=== PATIENT | male | born 1960 | race Caucasian/White ===

== ENCOUNTER 2019-01-28 13:50 | Emergency (ER) | payer MEDICARE, MEDICAID ==
[~2019-01-28] VITALS: Ht 142.2 cm; Wt 75.7 kg
[~2019-01-28 13:50] MED LIST: ATOR10TA PO; BIMA2.5D EACHEYE; KEP500T PO; LEVO50TA PO; MULT-1085 PO; TIMO10DR29 EACHEYE; VALP250C44 PO
[2019-01-28 15:24] LABS: BASOPHILS # (AUTO) 0.1 X10'3 (0-0.2); BASOPHILS % (AUTO) 0.7 % (0-1); EOSINOPHILS % (AUTO) 0.2 % (0-6); HEMATOCRIT 40.4 % (42.0-52.0); HEMOGLOBIN 13.9 g/dl (14.0-17.9); LYMPHOCYTES # (AUTO) 1.9 X10'3 (1.1-4.8); LYMPHOCYTES % (AUTO) 20.6 % (21-51); MEAN CORPUSCULAR HEMOGLOBIN 31.4 PG (27.0-31.0); MEAN CORPUSCULAR HGB CONC 34.3 g/dL (33.0-36.5); MEAN CORPUSCULAR VOLUME 91.4 FL (78-98); MEAN PLATELET VOLUME 7.7 FL (7.4-10.4); MONOCYTES # (AUTO) 1.4 X10'3 (0-0.9); MONOCYTES % (AUTO) 15.7 % (2-12); NEUTROPHILS # (AUTO) 5.7 X10'3 (1.8-7.7); NEUTROPHILS % (AUTO) 62.8 % (42-75); PLATELET COUNT 138 X10'3 (140-440); RED BLOOD COUNT 4.42 X10'6 (4.70-6.10); RED CELL DISTRIBUTION WIDTH 14.1 % (11.5-14.5); WHITE BLOOD COUNT 9.1 X10'3 (4.5-11.0)
[2019-01-28 15:35] LABS: ALANINE AMINOTRANSFERASE 16 U/L (12-78); ALBUMIN 3.4 G/DL (3.4-5.0); ALBUMIN/GLOBULIN RATIO 0.9 (1.1-1.5); ALKALINE PHOSPHATASE 49 IU/L (46-116); ANION GAP 8 (8-16); ASPARTATE AMINO TRANSFERASE 17 U/L (10-37); BILIRUBIN,TOTAL 1.8 MG/DL (0.1-1.0); BLOOD UREA NITROGEN 17 MG/DL (7-18); BUN/CREATININE RATIO 27.9 (5.4-32.0); CALCIUM 8.9 MG/DL (8.5-10.1); CHLORIDE 96 MMOL/L (99-107); CREATININE 0.61 MG/DL (0.60-1.10); GLUCOSE 99 MG/DL (70-104); POTASSIUM 3.7 MMOL/L (3.5-5.1); SODIUM 131 MMOL/L (135-145); TOTAL CARBON DIOXIDE 27.1 MMOL/L (24-32); TOTAL PROTEIN 7.1 G/DL (6.4-8.2); eGFR > 90 ML/MIN
[2019-01-28 15:44] LABS: MAGNESIUM 1.6 MG/DL (1.5-2.4)
[2019-01-28 17:09] LABS: TOTAL CELLS COUNTED 100
[2019-01-28 17:13] LABS: PLATELET ESTIMATE DECREASED
[2019-01-28 17:14] LABS: ANISOCYTOSIS FEW
[2019-01-28 17:26] LABS: SMUDGE CELLS FEW
--- NOTE | 2019-01-28 18:04 | NUR ---
PT HAS BEEN ACCEPTED TO [facility], AWAITING A BED ASSIGNMENT
[2019-01-28] MEDS ORDERED: ondansetron 4mg rapidly disintigrating tab PO ONE (22:50)
[2019-01-28] MEDS ORDERED: levetiracetam 250mg tablet PO ONE ×2 (23:00)
--- NOTE | 2019-01-28 23:30 | NUR ---
pt transferred from [facility] to hospital bed for comfort
--- NOTE | 2019-01-29 06:34 | NUR ---
CALLED [facility], NO BED ASSIGNMENT ETA YET.
--- NOTE | 2019-01-29 06:50 | NUR ---
pt asked if any family was here for him. I checked in lobby and no one is here for him. pt is aware.
--- NOTE | 2019-01-29 07:32 | NUR ---
PT SLEEPING IN NO DISTRESS.
--- NOTE | 2019-01-29 08:52 | NUR ---
PT IS SLEEPING. TOOK HIM OFF OF BIPAP FOR A LITTLE BIT, PAGED RT TO INFORM THEM. GAVE THE PT SOME WATER. PT STATES HE IS ALLERGIC TO EGGS AND HE NORMALLY JUST HAS WATER FOR BREAKFAST.
--- NOTE | 2019-01-29 09:14 | NUR ---
PT STATES HE HASN'T SEEN A DOCTOR FOR HIS DIARRHEA ISSUE BUT IT'S BEEN GOING ON FOR A LONG TIME. I PUT THE PT ON C-DIFF PRECAUTIONS. GAVE THE PT A FEW MORE SIPS OF WATER.
--- NOTE | 2019-01-29 09:40 | NUR ---
ATTEMPTED IV NOT ABLE TO OBTAIN
[2019-01-29] MEDS ORDERED: acetaminophen 325mg tablet PO ONE (11:30)
--- NOTE | 2019-01-29 11:30 | NUR ---
ATTEMPTED TO START IV, NO SUCCESS, PICC NURSE CONTACTED
[2019-01-29] MEDS: levetiracetam 250mg tablet PO SCH ×2 (11:56→19:36)
[2019-01-29] MEDS: valproic acid 250mg capsule PO SCH ×2 (13:23→22:38)
--- NOTE | 2019-01-29 14:46 | NUR ---
PLACED 20G PIV IN LEFT FOREARM X2 ATTEMPTS USING ULTRASOUND GUIDANCE. PATIENT TOLERATED ALL ASPECTS OF PROCEDURE WELL. SITE COVERED WITH TEGADERM AND TAPE, CAPS ADDED TO ENDS OF Y-SITE, BED IN LOW/LOCKED POSITION, PATIENT POSITIONED TO COMFORT, SIDE RAIL UP. RN NOTIFIED OF IV PLACEMENT.
[2019-01-29] MEDS ORDERED: morphine 4 MG/ML inj SYRINge IV ONE (15:20)
--- NOTE | 2019-01-29 15:26 | NUR ---
[facility] CALLED, STILL NO ETA OF BED ASSIGNMENT.
[2019-01-29] MEDS ORDERED: latanoprost 0.005% 2.5ml ophthalmic drops EACHEYE SCH (21:00)
--- NOTE | 2019-01-29 21:30 | NUR ---
PT OFFERED MEAL TRAY. EMT STUDENT HELPED PT TO EAT
--- NOTE | 2019-01-29 22:00 | NUR ---
PT PLACED ON BIPAP TO SLEEP. PT RESTING COMFORTABLY
--- NOTE | 2019-01-29 23:00 | NUR ---
PT APPEARS TO BE SLEEPING, NO APPARENT DISTRESS, RR NORMAL AND REGULAR
--- NOTE | 2019-01-30 00:15 | NUR ---
ROUNDING ON PT. PT REQUESTED BIPAP BE TAKEN OFF. BIPAP REMOVED AND NC 4 L PLACED ON PT
[2019-01-30] MEDS ORDERED: acetaminophen 325mg tablet PO ONE ×2 (01:40→08:00)
--- NOTE | 2019-01-30 01:45 | NUR ---
PT STATES HAVING HEADACHE AND THIRSTY. PT GIVEN WATER AND NOTIFIED PATEE MD OF NEED FOR PAIN MEDS, ORDERS TO FOLLOW
--- NOTE | 2019-01-30 03:05 | NUR ---
PT SLEEPING COMFORTABLY, RR 12, EVEN AND UNLABORED
--- NOTE | 2019-01-30 05:58 | NUR ---
PT SLEEPING. NO APPARENT DISTRESS
--- NOTE | 2019-01-30 06:39 | NUR ---
accepted care of patient, called [facility] to check bed status, still waiting for a bed to come available
[2019-01-30] MEDS ORDERED: timolol 0.5% ophthalmic solution 5ml bottle EACHEYE SCH (08:00)
[2019-01-30] MEDS ORDERED: multivitamins, therapeutics tablet PO SCH (08:00)
[2019-01-30] MEDS ORDERED: levoTHYROXINE 25mcg tablet PO SCH (08:00)
[2019-01-30] MEDS ORDERED: atorvastatin 10mg tablet PO SCH (08:00)
[2019-01-30] MEDS: valproic acid 250mg capsule PO SCH ×2 (09:01→13:04)
[2019-01-30] MEDS: levetiracetam 250mg tablet PO SCH (09:01)
[2019-01-30] MEDS ORDERED: ondansetron/PF 4mg/2ml inj IV ONE (12:20)
[2019-01-30] MEDS ORDERED: morphine 4 MG/ML inj SYRINge IV ONE (12:20)
[2019-01-30 14:00] VITALS: BP 138/68
--- NOTE | 2019-01-30 14:24 | NUR ---
I SPOKE WITH ITA COVINGTON, A NURSE AT [facility], I GAVE HER REPORT, THEN I HELPED LOAD THE PATIENT ONTO A GURNEY WITH ITA CUELLO WITH [facility] AND THEN THEY TRANSFERRED THE PATIENT DOWN TO [facility] FOR FURTHER CARE.
== END 2019-01-30 14:50 | disposition short-term general hospital (02) ==
LOC: ER 13:51
DX: T85.698A Other mechanical complication of other specified internal prosthetic devices, implants and grafts, initial encounter (principal); E78.00 Pure hypercholesterolemia, unspecified; G47.30 Sleep apnea, unspecified; Z88.6 Allergy status to analgesic agent; Z88.1 Allergy status to other antibiotic agents; Z88.5 Allergy status to narcotic agent; Z79.899 Other long term (current) drug therapy; Y84.8 Other medical procedures as the cause of abnormal reaction of the patient, or of later complication, without mention of misadventure at the time of the procedure; Y92.89 Other specified places as the place of occurrence of the external cause
CPT/HCPCS: 36415; 70450; 80053; 83735; 84443; 84484; 85025; 94660; 94760; 96374; 96375; 96376; 99285; J2270; J2405

== ENCOUNTER 2019-02-16 11:13 | Inpatient (IN) | payer MEDICARE, MEDICAID ==
[~2019-02-16] VITALS: Ht 142.2 cm; Wt 71.8 kg
[2019-02-16] MEDS ORDERED: normal saline 1000ML IV soln IVB ONE (12:45)
[2019-02-16] MEDS ORDERED: ondansetron/PF 4mg/2ml inj IV ONE (12:45)
[2019-02-16] MEDS ORDERED: fentaNYL/PF 50MCG/1 ML 2ML syringe IV ONE (12:45)
--- NOTE | 2019-02-16 13:45 | NUR ---
pt to ct scan via [facility]
[2019-02-16 14:03] LABS: CLARITY,URINE CLEAR (Clear); COLOR,URINE YELLOW (Yellow); GLUCOSE, URINE NEGATIVE (Neg); KETONES,URINE NEGATIVE (Neg); LEUKOCYTE ESTERASE ,URINE NEGATIVE (Neg); NITRITES, URINE NEGATIVE (Neg); OCCULT BLOOD,URINE NEGATIVE (Neg); PROTEIN,URINE NEGATIVE (Neg)
[2019-02-16 14:04] LABS: UA COLLECTION TYPE CLN CATCH MIDSTREAM
[2019-02-16 14:20] LABS: BASOPHILS % (AUTO) 0.4 % (0-1); EOSINOPHILS # (AUTO) 0.1 X10'3 (0-0.9); EOSINOPHILS % (AUTO) 0.9 % (0-6); HEMATOCRIT 31.2 % (42.0-52.0); HEMOGLOBIN 10.8 g/dl (14.0-17.9); LYMPHOCYTES # (AUTO) 0.9 X10'3 (1.1-4.8); LYMPHOCYTES % (AUTO) 14.3 % (21-51); MEAN CORPUSCULAR HEMOGLOBIN 32.3 PG (27.0-31.0); MEAN CORPUSCULAR HGB CONC 34.5 g/dL (33.0-36.5); MEAN CORPUSCULAR VOLUME 93.5 FL (78-98); MEAN PLATELET VOLUME 6.7 FL (7.4-10.4); MONOCYTES # (AUTO) 0.4 X10'3 (0-0.9); MONOCYTES % (AUTO) 6.1 % (2-12); NEUTROPHILS # (AUTO) 5.1 X10'3 (1.8-7.7); NEUTROPHILS % (AUTO) 78.3 % (42-75); PLATELET COUNT 316 X10'3 (140-440); RED BLOOD COUNT 3.33 X10'6 (4.70-6.10); RED CELL DISTRIBUTION WIDTH 15.5 % (11.5-14.5); WHITE BLOOD COUNT 6.5 X10'3 (4.5-11.0)
[2019-02-16 14:39] LABS: ALANINE AMINOTRANSFERASE 79 U/L (12-78); ALBUMIN 3.7 G/DL (3.4-5.0); ALBUMIN/GLOBULIN RATIO 0.9 (1.1-1.5); ALKALINE PHOSPHATASE 200 IU/L (46-116); ANION GAP 11 (8-16); ASPARTATE AMINO TRANSFERASE 45 U/L (10-37); BLOOD UREA NITROGEN 10 MG/DL (7-18); BUN/CREATININE RATIO 19.6 (5.4-32.0); CALCIUM 9.1 MG/DL (8.5-10.1); CHLORIDE 103 MMOL/L (99-107); CREATININE 0.51 MG/DL (0.60-1.10); GLUCOSE 120 MG/DL (70-104); POTASSIUM 4.1 MMOL/L (3.5-5.1); SODIUM 138 MMOL/L (135-145); TOTAL CARBON DIOXIDE 24.2 MMOL/L (24-32); TOTAL PROTEIN 7.6 G/DL (6.4-8.2); eGFR > 90 ML/MIN
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
--- NOTE | 2019-02-16 15:55 | NUR ---
PT STATES I WOULD LIKE TO BE PLACED IN A CUSTODIAL BECAUSE MY SISTER CANNOT TAKE CARE OF ME ANYMORE.
--- NOTE | 2019-02-16 16:03 | NUR ---
n Asked to consult on pt regarding his dc plans. Per pt, he lives w/ his sister Kathe and her spouse Luis Angel. He has lived w/ them for approx the last year, he receives his mail there also. Kathe has unspecified issues and is mostly wheelchair bound, Luis Angel is scheduled for some type of surgery in the near future. The pt says Luis Angel called the ambulance for him this afternoon and told him he can't come back. I educated [facility] to the fact that they simply can't force him out, that there is a process to a eviction. I did tell him that because he has PHP he would be eligible for a LT care bed but finding one would be a private issue. Case management does not make referrals to LT care. I provided the pt w/ a list of all the local facilities complete w/ their contact info so he can make some calls. Pt's father is 91 and unable to help him. follow up manager Yaquelin called Luis Angel who once again refused to take the pt back. About this time I was notified by pt's ITA Lilly that pt was being admitted. I spoke w/ Dr. Woodson about this and let him know that there was not any admitting criteria for pt to be admitted. Dr. Woodson says he's calling [facility] to see if they will consider pt for a transfer. He says that if [facility] does not take the pt he will have him admitted by the hospitalist. I once again told him that we did not have any admitting criteria but he says he won't send the pt back home because the family won't take care of him.
[2019-02-16] MEDS ORDERED: SPIR25TA5 PO (17:00)
[2019-02-16] MEDS ORDERED: LACO200T2 PO (17:04)
[2019-02-16] MEDS ORDERED: OMEP40CA13 PO (17:04)
[2019-02-16] MEDS ORDERED: LACT10SO PO (17:04)
[2019-02-16] MEDS ORDERED: mag hydrox/Alum hydrox/simeth 30ml oral suspension PO PRN (17:45)
[2019-02-16] MEDS ORDERED: ondansetron/PF 4mg/2ml inj IV PRN (17:45)
[2019-02-16] MEDS ORDERED: acetaminophen 325mg tablet PO PRN (17:45)
[2019-02-16] MEDS ORDERED: magnesium hydroxide 30ml (MOM) UD suspension PO PRN (17:45)
--- NOTE | 2019-02-16 17:54 | NUR ---
STROKE NURSE LORRIE AT BEDSIDE ASSESSING PT. TELE NEURO MONITOR AT BEDSIDE.
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
[2019-02-16 18:14] LABS: VALPROATE < 3.0 UG/ML (50-100)
--- NOTE | 2019-02-16 18:45 | NUR ---
TELE NEURO EXAM COMPLETED WITH DR HUGGINS FROM SOC. DR BASSETT'S PHONE # PROVIDED TO DR HUGGINS.
[2019-02-16] MEDS ORDERED: BRIM5DRO2 EACHEYE (18:51)
--- NOTE | 2019-02-16 19:10 | NUR ---
Received report from Swetha JEAN BAPTISTE in the ER. Pt arrived on the unit via gurney and was transferred to bed via slide. VSS, no signs of distress. Will continue to monitor pt.
[2019-02-16 19:30] VITALS: BP 138/65
[2019-02-16] MEDS: acetaminophen 325mg tablet PO PRN (20:36)
[2019-02-16 22:00] VITALS: BP 119/72
[2019-02-17 06:00] VITALS: BP 106/52
--- NOTE | 2019-02-17 06:42 | NUR ---
Patient in room ORTHO 4013. I have received report from ITA Maguire and had the opportunity to ask questions and assume patient care.
--- NOTE | 2019-02-17 06:43 | NUR ---
Problems reprioritized. Patient report given, questions answered & plan of care reviewed with Candelaria RN.
[2019-02-17 10:00] VITALS: BP 121/69
[2019-02-17] MEDS: acetaminophen 325mg tablet PO PRN (11:04)
[2019-02-17 18:00] VITALS: BP 137/72
--- NOTE | 2019-02-17 18:29 | NUR ---
Problems reprioritized. Patient report given, questions answered & plan of care reviewed with ITA Muñoz.
--- NOTE | 2019-02-17 18:43 | NUR ---
Patient in room ORTHO 4013. I have received report from ITA Gaona and had the opportunity to ask questions and assume patient care.
[2019-02-17] MEDS: nortriptyline 25mg capsule PO SCH (20:39)
[2019-02-17 22:00] VITALS: BP 124/64
--- NOTE | 2019-02-18 06:35 | NUR ---
Problems reprioritized. Patient report given, questions answered & plan of care reviewed with ITA Vaughn.
[2019-02-18 06:55] VITALS: BP 177/72
[2019-02-18 10:00] VITALS: BP 133/74
[2019-02-18 18:00] VITALS: BP 151/89
--- NOTE | 2019-02-18 18:23 | NUR ---
Problems reprioritized. Patient report given, questions answered & plan of care reviewed with ITA Lim.
--- NOTE | 2019-02-18 18:31 | NUR ---
Patient in room ORTHO 4013. I have received report from ITA Vaughn and had the opportunity to ask questions and assume patient care.
[2019-02-18 18:56] VITALS: BP 115/61
[2019-02-18] MEDS: latanoprost 0.005% 2.5ml ophthalmic drops EACHEYE SCH (20:42)
[2019-02-18] MEDS: nortriptyline 25mg capsule PO SCH (20:43)
[2019-02-18] MEDS: brimonidine 0.2% 5 ML ophthalmic drops EACHEYE SCH (20:43)
[2019-02-18] MEDS: timolol 0.5% ophthalmic solution 5ml bottle EACHEYE SCH (20:43)
[2019-02-18] MEDS: levetiracetam 250mg tablet PO SCH (20:44)
[2019-02-18 22:00] VITALS: BP 88/64
[2019-02-19 06:00] VITALS: BP 129/68
--- NOTE | 2019-02-19 06:05 | NUR ---
Patient in room ORTHO 4013. I have received report from Carina JEAN BAPTISTE and had the opportunity to ask questions and assume patient care.
--- NOTE | 2019-02-19 06:35 | NUR ---
Problems reprioritized. Patient report given, questions answered & plan of care reviewed with ITA Oseguera.
[2019-02-19] MEDS: spironolactone 25 MG tablet PO SCH (08:18)
[2019-02-19] MEDS: lactulose 20gm/30ml cup PO SCH (08:18)
[2019-02-19] MEDS: multivitamins, therapeutics tablet PO SCH (08:18)
[2019-02-19] MEDS: atorvastatin 10mg tablet PO SCH (08:18)
[2019-02-19] MEDS: levoTHYROXINE 25mcg tablet PO SCH (08:18)
[2019-02-19] MEDS: timolol 0.5% ophthalmic solution 5ml bottle EACHEYE SCH ×2 (08:19→20:33)
[2019-02-19] MEDS: levetiracetam 250mg tablet PO SCH ×2 (08:19→20:32)
[2019-02-19] MEDS: pantoprazole 40mg Tablet.DR PO SCH (08:19)
[2019-02-19] MEDS: brimonidine 0.2% 5 ML ophthalmic drops EACHEYE SCH ×2 (08:19→20:32)
[2019-02-19 10:00] VITALS: BP 107/57
[2019-02-19 18:00] VITALS: BP 154/73
--- NOTE | 2019-02-19 18:25 | NUR ---
Problems reprioritized. Patient report given, questions answered & plan of care reviewed with Carina JEAN BAPTISTE.
--- NOTE | 2019-02-19 18:30 | NUR ---
Patient in room ORTHO 4013. I have received report from ITA Oseguera and had the opportunity to ask questions and assume patient care.
[2019-02-19] MEDS: latanoprost 0.005% 2.5ml ophthalmic drops EACHEYE SCH (20:32)
[2019-02-19] MEDS: nortriptyline 25mg capsule PO SCH (20:32)
[2019-02-19 22:00] VITALS: BP 123/67
--- NOTE | 2019-02-20 06:20 | NUR ---
Problems reprioritized. Patient report given, questions answered & plan of care reviewed with ITA Oseguera and ITA Gallegos.
[2019-02-20 06:49] VITALS: BP 127/70
--- NOTE | 2019-02-20 06:50 | NUR ---
Patient in room ORTHO 4013. I have received report from Carina JEAN BAPTISTE and had the opportunity to ask questions and assume patient care.
[2019-02-20] MEDS: timolol 0.5% ophthalmic solution 5ml bottle EACHEYE SCH ×2 (07:35→21:40)
[2019-02-20] MEDS: brimonidine 0.2% 5 ML ophthalmic drops EACHEYE SCH ×2 (07:35→21:40)
[2019-02-20] MEDS: spironolactone 25 MG tablet PO SCH (07:36)
[2019-02-20] MEDS: pantoprazole 40mg Tablet.DR PO SCH (07:36)
[2019-02-20] MEDS: levoTHYROXINE 25mcg tablet PO SCH (07:36)
[2019-02-20] MEDS: levetiracetam 250mg tablet PO SCH ×2 (07:36→21:40)
[2019-02-20] MEDS: atorvastatin 10mg tablet PO SCH (07:36)
[2019-02-20] MEDS: multivitamins, therapeutics tablet PO SCH (07:36)
[2019-02-20] MEDS: lactulose 20gm/30ml cup PO SCH (07:36)
[2019-02-20] MEDS: acetaminophen w/codeine (30MG) #3 tablet PO PRN (08:41)
[2019-02-20 10:48] VITALS: BP 100/64
[2019-02-20 18:00] VITALS: BP 106/60
--- NOTE | 2019-02-20 18:15 | NUR ---
Patient in room ORTHO 4013. I have received report from ALFREDO Gallegos and ITA Oseguera and had the opportunity to ask questions and assume patient care.
--- NOTE | 2019-02-20 18:25 | NUR ---
Problems reprioritized. Patient report given, questions answered & plan of care reviewed with Jose JEAN BAPTISTE. Addendum: 02/20/19 at 1826 by El Brumfield RN Typed in wrong name for report. Report given to Carina JEAN BAPTISTE.
--- NOTE | 2019-02-20 18:25 | NUR ---
I have reviewed and agree with all interventions, assessments performed and documented by El JEAN BAPTISTE.
[2019-02-20] MEDS: latanoprost 0.005% 2.5ml ophthalmic drops EACHEYE SCH (21:39)
[2019-02-20] MEDS: nortriptyline 25mg capsule PO SCH (21:40)
[2019-02-20 22:00] VITALS: BP 144/77
[2019-02-21 06:00] VITALS: BP 142/78
--- NOTE | 2019-02-21 06:15 | NUR ---
Patient in room ORTHO 4013. I have received report from and had the opportunity to ask questions and assume patient care ITA Lim.
--- NOTE | 2019-02-21 06:51 | NUR ---
Problems reprioritized. Patient report given, questions answered & plan of care reviewed with ITA Justice.
[2019-02-21] MEDS: brimonidine 0.2% 5 ML ophthalmic drops EACHEYE SCH ×2 (08:00→21:29)
[2019-02-21] MEDS: timolol 0.5% ophthalmic solution 5ml bottle EACHEYE SCH ×2 (08:00→21:29)
[2019-02-21] MEDS: lactulose 20gm/30ml cup PO SCH (08:03)
[2019-02-21] MEDS: multivitamins, therapeutics tablet PO SCH (08:04)
[2019-02-21] MEDS: levetiracetam 250mg tablet PO SCH ×2 (08:04→21:21)
[2019-02-21] MEDS: atorvastatin 10mg tablet PO SCH (08:04)
[2019-02-21] MEDS: pantoprazole 40mg Tablet.DR PO SCH (08:04)
[2019-02-21] MEDS: spironolactone 25 MG tablet PO SCH (08:04)
[2019-02-21] MEDS: levoTHYROXINE 25mcg tablet PO SCH (08:04)
[2019-02-21 10:00] VITALS: BP 109/60
[2019-02-21] MEDS: acetaminophen w/codeine (30MG) #3 tablet PO PRN (11:39)
[2019-02-21] MEDS: nortriptyline 25mg capsule PO SCH (21:37)
[2019-02-21] MEDS: latanoprost 0.005% 2.5ml ophthalmic drops EACHEYE SCH (21:38)
[2019-02-22 06:00] VITALS: BP 110/50
[2019-02-22] MEDS: atorvastatin 10mg tablet PO SCH (08:43)
[2019-02-22] MEDS: multivitamins, therapeutics tablet PO SCH (08:43)
[2019-02-22] MEDS: spironolactone 25 MG tablet PO SCH (08:43)
[2019-02-22] MEDS: levoTHYROXINE 25mcg tablet PO SCH (08:43)
[2019-02-22] MEDS: pantoprazole 40mg Tablet.DR PO SCH (08:43)
[2019-02-22] MEDS: levetiracetam 250mg tablet PO SCH ×2 (08:44→19:51)
[2019-02-22] MEDS: timolol 0.5% ophthalmic solution 5ml bottle EACHEYE SCH ×2 (08:44→19:52)
[2019-02-22] MEDS: brimonidine 0.2% 5 ML ophthalmic drops EACHEYE SCH ×2 (08:44→19:52)
[2019-02-22] MEDS: lactulose 20gm/30ml cup PO SCH (08:44)
[2019-02-22 10:00] VITALS: BP 104/65
--- NOTE | 2019-02-22 14:48 | NUR ---
Initial: Pt admit w/ dizziness hx hydrocephalus and weakness requiring help at baseline per MD note. Pt PO 100% meals since admit meeting needs. 0% dinner last night but overall good PO this admit regular diet. [facility] 02/21. No nutrition concerns at this time. Will continue to monitor. Rec: 1. continue regular diet 2. wt per rx Addendum: 02/22/19 at [address] Amended: Links added.
[2019-02-22] MEDS: acetaminophen w/codeine (30MG) #3 tablet PO PRN (16:00)
--- NOTE | 2019-02-22 18:30 | NUR ---
Patient in room ORTHO 4015. I have received report from Sandra JEAN BAPTISTE and had the opportunity to ask questions and assume patient care.
[2019-02-22] MEDS: nortriptyline 25mg capsule PO SCH (19:49)
[2019-02-22] MEDS: latanoprost 0.005% 2.5ml ophthalmic drops EACHEYE SCH (19:52)
[2019-02-22 21:00] VITALS: BP 103/65
[2019-02-23 05:00] VITALS: BP 125/68
--- NOTE | 2019-02-23 06:30 | NUR ---
Patient in room ORTHO 4015. I have received report from ITA Maguire and had the opportunity to ask questions and assume patient care.
--- NOTE | 2019-02-23 06:34 | NUR ---
Problems reprioritized. Patient report given, questions answered & plan of care reviewed with Kaila JEAN BAPTISTE. Addendum: 02/23/19 at 0639 by Ting Augustine RN Report given to Alfreda JEAN BAPTISTE, not Kaila JEAN BAPTISTE.
[2019-02-23] MEDS: spironolactone 25 MG tablet PO SCH (07:47)
[2019-02-23] MEDS: levetiracetam 250mg tablet PO SCH ×2 (07:47→20:59)
[2019-02-23] MEDS: levoTHYROXINE 25mcg tablet PO SCH (07:48)
[2019-02-23] MEDS: timolol 0.5% ophthalmic solution 5ml bottle EACHEYE SCH ×2 (07:48→20:57)
[2019-02-23] MEDS: pantoprazole 40mg Tablet.DR PO SCH (07:48)
[2019-02-23] MEDS: atorvastatin 10mg tablet PO SCH (07:48)
[2019-02-23] MEDS: multivitamins, therapeutics tablet PO SCH (07:48)
[2019-02-23] MEDS: brimonidine 0.2% 5 ML ophthalmic drops EACHEYE SCH ×2 (07:48→20:56)
[2019-02-23] MEDS: lactulose 20gm/30ml cup PO SCH (07:51)
[2019-02-23 10:00] VITALS: BP 104/56
--- NOTE | 2019-02-23 17:50 | NUR ---
VS stable throughout the day. Denies pain. safety maintained ambulating in [place] with cane several times today. Pt still awaiting placement.
[2019-02-23 18:00] VITALS: BP 138/94
--- NOTE | 2019-02-23 18:27 | NUR ---
Problems reprioritized. Patient report given, questions answered & plan of care reviewed with ITA Rod.
--- NOTE | 2019-02-23 18:30 | NUR ---
Patient in room ORTHO 4015. I have received report from Joann JEAN BAPTISTE and had the opportunity to ask questions and assume patient care.Monster
[2019-02-23] MEDS: nortriptyline 25mg capsule PO SCH (20:59)
[2019-02-23] MEDS: acetaminophen w/codeine (30MG) #3 tablet PO PRN (21:05)
[2019-02-23] MEDS: latanoprost 0.005% 2.5ml ophthalmic drops EACHEYE SCH (21:07)
[2019-02-23 22:00] VITALS: BP 118/66
[2019-02-24 06:00] VITALS: BP 108/64
--- NOTE | 2019-02-24 06:47 | NUR ---
Problems reprioritized. Patient report given, questions answered & plan of care reviewed with Micheline JEAN BAPTISTE.
[2019-02-24] MEDS: lactulose 20gm/30ml cup PO SCH ×2 (07:42→07:45)
[2019-02-24] MEDS: pantoprazole 40mg Tablet.DR PO SCH (07:42)
[2019-02-24] MEDS: levoTHYROXINE 25mcg tablet PO SCH (07:43)
[2019-02-24] MEDS: multivitamins, therapeutics tablet PO SCH (07:43)
[2019-02-24] MEDS: levetiracetam 250mg tablet PO SCH ×2 (07:43→20:08)
[2019-02-24] MEDS: atorvastatin 10mg tablet PO SCH (07:43)
[2019-02-24] MEDS: spironolactone 25 MG tablet PO SCH (07:43)
[2019-02-24 10:00] VITALS: BP 144/91
--- NOTE | 2019-02-24 13:51 | NUR ---
PATIENT WAS HAVING A HARD TIME HAVING A BM, REQUESTED A BEDPAN AND WAS UNSUCCESSFUL. I ASKED THE PATIENT IF HE WAS WILLING TO TRY THE TOILET AND SAID YES. PATIENT WALKED WITH STANDBY ASSIST AND CANE TO BATHROOM AND WAS ABLE TO HAVE A BM
[2019-02-24 18:00] VITALS: BP 127/87
--- NOTE | 2019-02-24 18:15 | NUR ---
Received report from Lucio JEAN BAPTISTE, assumed care of patient.
--- NOTE | 2019-02-24 18:26 | NUR ---
Problems reprioritized. Patient report given, questions answered & plan of care reviewed with Myesha JEAN BAPTISTE.
[2019-02-24] MEDS: nortriptyline 25mg capsule PO SCH (20:07)
[2019-02-24] MEDS: timolol 0.5% ophthalmic solution 5ml bottle EACHEYE SCH (20:12)
[2019-02-24] MEDS: latanoprost 0.005% 2.5ml ophthalmic drops EACHEYE SCH (20:12)
[2019-02-24] MEDS: brimonidine 0.2% 5 ML ophthalmic drops EACHEYE SCH (20:12)
[2019-02-24 22:00] VITALS: BP 120/77
[2019-02-25 06:00] VITALS: BP 129/76
--- NOTE | 2019-02-25 06:15 | NUR ---
Report given to Serjio JEAN BAPTISTE.
--- NOTE | 2019-02-25 06:40 | NUR ---
Patient in room ORTHO 4015. I have received report from Myesha Cline RN and had the opportunity to ask questions and assume patient care.
[2019-02-25] MEDS: timolol 0.5% ophthalmic solution 5ml bottle EACHEYE SCH ×2 (08:23→20:45)
[2019-02-25] MEDS: brimonidine 0.2% 5 ML ophthalmic drops EACHEYE SCH ×2 (08:23→20:45)
[2019-02-25] MEDS: levetiracetam 250mg tablet PO SCH ×2 (08:26→20:44)
[2019-02-25] MEDS: atorvastatin 10mg tablet PO SCH (08:27)
[2019-02-25] MEDS: pantoprazole 40mg Tablet.DR PO SCH (08:27)
[2019-02-25] MEDS: multivitamins, therapeutics tablet PO SCH (08:27)
[2019-02-25] MEDS: spironolactone 25 MG tablet PO SCH (08:27)
[2019-02-25] MEDS: levoTHYROXINE 25mcg tablet PO SCH (08:28)
[2019-02-25] MEDS: lactulose 20gm/30ml cup PO SCH (08:28)
[2019-02-25 09:37] VITALS: BP 117/65
[2019-02-25] MEDS: acetaminophen w/codeine (30MG) #3 tablet PO PRN (12:38)
[2019-02-25 18:00] VITALS: BP 100/67
--- NOTE | 2019-02-25 18:20 | NUR ---
Problems reprioritized. Patient report given, questions answered & plan of care reviewed with Leon JEAN BAPTISTE.
--- NOTE | 2019-02-25 19:00 | NUR ---
Patient in room ORTHO 4015. I have received report from Serjio JEAN BAPTISTE and had the opportunity to ask questions and assume patient care.
[2019-02-25] MEDS: nortriptyline 25mg capsule PO SCH (20:41)
[2019-02-25] MEDS: latanoprost 0.005% 2.5ml ophthalmic drops EACHEYE SCH (20:45)
[2019-02-25 22:00] VITALS: BP 99/64
--- NOTE | 2019-02-26 | NUR ---
Pt resting quietly in bed and is on cpap. Patient denies needs at this time.
[2019-02-26 06:00] VITALS: BP 118/71
--- NOTE | 2019-02-26 06:05 | NUR ---
Patient in room ORTHO 4015. I have received report from Leon Nick RN and had the opportunity to ask questions and assume patient care.
--- NOTE | 2019-02-26 06:32 | NUR ---
Problems reprioritized. Patient report given, questions answered & plan of care reviewed with Elyssa JEAN BAPTISTE.
[2019-02-26] MEDS: lactulose 20gm/30ml cup PO SCH (08:00)
[2019-02-26] MEDS: timolol 0.5% ophthalmic solution 5ml bottle EACHEYE SCH (09:22)
[2019-02-26] MEDS: brimonidine 0.2% 5 ML ophthalmic drops EACHEYE SCH (09:22)
[2019-02-26] MEDS: spironolactone 25 MG tablet PO SCH (09:25)
[2019-02-26] MEDS: levetiracetam 250mg tablet PO SCH (09:25)
[2019-02-26] MEDS: levoTHYROXINE 25mcg tablet PO SCH (09:26)
[2019-02-26] MEDS: atorvastatin 10mg tablet PO SCH (09:26)
[2019-02-26] MEDS: pantoprazole 40mg Tablet.DR PO SCH (09:26)
[2019-02-26] MEDS: multivitamins, therapeutics tablet PO SCH (09:27)
[2019-02-26 10:00] VITALS: BP 103/55
--- NOTE | 2019-02-26 10:25 | NUR ---
DC orders in, pending transportation
--- NOTE | 2019-02-26 16:21 | NUR ---
Reviewed discharge instructions with pt and brother in law. Pt verbalized understanding. Pt is alert, oriented in in good spirits. C-Pap and dentures were returned to pt. Pt and brother in law indicate pt had clothing upon admission. Unable to locate clothing prior to discharge. Pt was wheeled downstairs by staff and assisted in a large truck, driven by pt's brother in law who will drive him home.
== END 2019-02-26 16:10 | disposition home health service (06) | DRG 57 ==
LOC: ER 11:50 → OBSVTOIN 19:13 → INTOOBSV 19:13 → UNDOADMOB 19:13 → ORTHO 4S 19:13 → CMPBEDREQ 19:55 → ORTHO 4S 02-18 12:00 → OBSVTOIN 02-18 12:00 → ORTHO 4S 02-22 12:45
PROVIDERS: ADMIT Hospitalist; ATTEND Internal Medicine
PROC: 5A09357 Assistance with Respiratory Ventilation, Less than 24 Consecutive Hours, Continuous Positive Airway Pressure (ICD-10-PCS; principal; 2019-02-20)
PROC: 5A09357 Assistance with Respiratory Ventilation, Less than 24 Consecutive Hours, Continuous Positive Airway Pressure (ICD-10-PCS; 2019-02-21)
PROC: 5A09357 Assistance with Respiratory Ventilation, Less than 24 Consecutive Hours, Continuous Positive Airway Pressure (ICD-10-PCS; 2019-02-22)
PROC: 5A09357 Assistance with Respiratory Ventilation, Less than 24 Consecutive Hours, Continuous Positive Airway Pressure (ICD-10-PCS; 2019-02-24)
PROC: 5A09357 Assistance with Respiratory Ventilation, Less than 24 Consecutive Hours, Continuous Positive Airway Pressure (ICD-10-PCS; 2019-02-25)
DX: G91.2 (Idiopathic) normal pressure hydrocephalus (principal); D64.9 Anemia, unspecified; E03.9 Hypothyroidism, unspecified; E78.00 Pure hypercholesterolemia, unspecified; E78.5 Hyperlipidemia, unspecified; G47.30 Sleep apnea, unspecified; G89.29 Other chronic pain; H53.2 Diplopia; R29.6 Repeated falls; Z79.899 Other long term (current) drug therapy; Z98.2 Presence of cerebrospinal fluid drainage device; Z88.8 Allergy status to other drugs, medicaments and biological substances; Z88.6 Allergy status to analgesic agent; Z88.1 Allergy status to other antibiotic agents; Z91.012 Allergy to eggs
CPT/HCPCS: 36415; 70250; 70450; 71045; 80053; 80164; 81003; 85025; 87081; 93005; 94660; 94760; 96361; 96374; 96375; 97110; 97116; 97161; 97530; 99285; G0378; J2405; J3010